=== PATIENT | male | born 1975 | race Caucasian/White ===

== ENCOUNTER 2022-04-09 13:06 | Outpatient (CLI) | payer OTHER | END 2022-04-09 13:07 | disposition home or self-care (01) | LOC: RAD 13:06 | PROVIDERS: ATTEND Internal Medicine Pulmonary Disease | DX: J45.998 Other asthma (principal) | CPT/HCPCS: 71046 ==

== ENCOUNTER 2024-03-25 08:41 | Outpatient (CLI) | payer OTHER | END 2024-03-25 08:42 | disposition home or self-care (01) | LOC: ULT 08:41 | PROVIDERS: ATTEND Internal Medicine | DX: R10.10 Upper abdominal pain, unspecified (principal) | CPT/HCPCS: 76705 ==